=== PATIENT | female | born 1960 | race Caucasian/White ===

== ENCOUNTER 2024-03-27 10:23 | Day surgery (SDC) | payer OTHER ==
[~2024-03-27] VITALS: Ht 160 cm; Wt 59.0 kg
[2024-03-27] MEDS ORDERED: fentaNYL citrate 0.05 MG/ML VIAL ONE (11:06)
[2024-03-27] MEDS ORDERED: LIDOCAINE 2% 100 MG/5 ML UJET TP ONE (11:06)
[2024-03-27] MEDS: fentaNYL citrate 0.05 MG/ML VIAL IVP ONE (11:30)
== END 2024-03-27 12:30 | disposition home or self-care (01) ==
LOC: MDS 10:23 → MMU 10:26 → MDS 12:30
PROVIDERS: ATTEND Internal Medicine Gastroenterology
DX: Z12.11 Encounter for screening for malignant neoplasm of colon (principal); K64.9 Unspecified hemorrhoids; Z80.0 Family history of malignant neoplasm of digestive organs
CPT/HCPCS: 45378; J3010